=== PATIENT | female | born 1970 | race Caucasian/White ===

== ENCOUNTER 2024-10-03 16:24 | Emergency (ER) | payer OTHER ==
[~2024-10-03] VITALS: Ht 162.6 cm; Wt 72.6 kg
[2024-10-03] MEDS: IV NS 0.9% 1,000 ML BAG IV ONE (17:32)
[2024-10-03 17:35] LABS: PLATELET COUNT (AUTO) 244 K/uL (150-450); RED BLOOD CELL COUNT(AUTO) 4.10 MIL/uL (4.0-5.2); RED CELL DISTRIBUTION WIDTH 12.4 % (11.5-15.0); WHITE BLOOD COUNT (AUTO) 6.3 K/uL (4.3-11.0)
[2024-10-03 17:44] LABS: CALCIUM, SERUM 9.2 mg/dL (8.5-10.1); CREATININE 0.9 mg/dL (0.6-1.3); SODIUM SERUM 143 mmol/L (136-145); UREA NITROGEN, BLOOD 11 mg/dL (7-18)
[2024-10-03 17:49] LABS: PREGNANCY TEST URINE QUAL NEGATIVE (NEGATIVE)
[2024-10-03] MEDS ORDERED: POTA-88 PO (18:25)
[2024-10-03] MEDS: POTASSIUM CHLORIDE 20 MEQ TAB.PRT.SR PO ONE (18:44)
[2024-10-03] MEDS ORDERED: POTASSIUM CHLORIDE 20 MEQ TAB.PRT.SR PO ONE (18:45)
[2024-10-03 19:17] VITALS: BP 131/70; TEMP 98.3; O2SAT 98
== END 2024-10-03 19:17 | disposition home or self-care (01) ==
LOC: ER 16:24
DX: R55 Syncope and collapse (principal); E87.6 Hypokalemia; R42 Dizziness and giddiness; R06.02 Shortness of breath; Z79.899 Other long term (current) drug therapy
CPT/HCPCS: 99285; 96360; 71045; 93005; 85025; 80048; 84703; 36415; 84484; 83880; 82962; J7030